=== PATIENT | female | born 1975 | race Caucasian/White ===

== ENCOUNTER 2022-10-20 18:09 | Emergency (ER) | payer BC, SELFPAY ==
--- NOTE | 2022-10-20 18:10 | ED.DENTAL ---
HPI - Dental/Oral General Chief complaint: Dental/Oral Stated complaint: Tooth pain Time Seen by Provider: 10/20/22 18:09 Source: patient Mode of arrival: ambulatory Limitations: no limitations History of Present Illness HPI Narrative: Mayra is a 47-year-old female patient presenting to the clinic today with complaints of right lower dental pain X2 days. She reports She was seen by her dentist 2 days ago and they put a temporary filling in her right lower posterior molar but stated she needed to come back for a root canal. She is concerned that it may be infected now as this morning she developed severe pain. She rates her pain at 10/10 currently. Reports that the pain is radiating into her ear and into her sinuses. Related Data Home Medications Medication Instructions Recorded Confirmed empagliflozin 10 mg tablet 10 mg PO DAILY 10/20/22 10/20/22 (Jardiance) famotidine 20 mg tablet (Pepcid) 20 mg PO DAILY 10/20/22 10/20/22 metformin 500 mg tablet 500 mg PO BID 10/20/22 10/20/22 pregabalin 25 mg capsule (Lyrica) 25 mg PO TID 10/20/22 10/20/22 semaglutide 0.25 mg or 0.5 mg (2 0.25 mg subcut WEEKLY 10/20/22 10/20/22 mg/3 mL) subcutaneous pen injector (Ozempic) tramadol 50 mg tablet 50 mg PO Q6H PRN Pain (Scale Score 10/20/22 10/20/22 7-10) Allergies Allergy/AdvReac Type Severity Reaction Status Date / Time No Known Allergies Allergy Verified 10/20/22 18:24 Review of Systems Review of Systems: Pertinent positives per HPI. Patient denies any fever, chills, rash, headache, visual changes, dizziness, cough, runny nose, sore throat, shortness of breath, chest pain, palpitations, nausea, vomiting, diarrhea, constipation, abdominal pain, or any urinary issues. PMFSH Comments At the time of my signature, I reviewed and agree with the nursing past medical, surgical, social, and family history. There is no relevant family history pertinent to the patient complaint. Exam Narrative: General: Well-developed, well nourished, in no apparent distress Head: Normocephalic, atraumatic Eyes: Pupils equally round and reactive to light bilaterally, EOM intact, sclera and conjunctive clear, no discharge, lids normal Ears: TMs intact and clear, ear canals clear, no drainage, grossly hearing normal. Nose: Nares patent, no discharge, no inflammation, no sinus tenderness. Mouth: Oropharynx without lesions or masses, poor dentition, MMM. Dental pain to number 31 with decay Neck: Supple, trachea midline, no enlargement of anterior or posterior cervical nodes, no thyroid masses or goiter palpable. Cardio: Regular rate and rhythm, s1 and s2 normal, no murmur appreciated. Resp: Clear to auscultation bilaterally anteriorly and posteriorly, no rhonchi, rales, wheezing or rubs Course Course Emergency Course: Portions of this record may have been created with voice recognition software. Level of Care: Express Care Visit Vital Signs Vital signs: Vital signs reviewed Procedures Other Procedure Procedure 1: Other Procedure: Right inferior alveolar block performed in the clinic today. 3 mL 1% Lidocaine with epi injected. Patient tolerated procedure well. Patient's initial pain was 10 attend and this brought her pain down to a 2/10. MDM - Dental/Oral MDM Narrative Medical decision making narrative: At the time of visit patient is resting comfortably on exam table. Offered dental block in the clinic today and patient would like to have this done. Risk and benefits explained and patient voiced understanding. A 23 gauge needle was then used to instill 3 mL of lidocaine with epi to create a right inferior alveolar block. Patient discharge rating her pain a 2/10. Supportive measures were discussed with the patient she voiced understanding discharge instructions agrees to treatment plan. Prescription for amoxicillin was also sent to the pharmacy. Differential Diagnosis Differential diagnosis: Likely gi
[2022-10-20 18:16] VITALS: BP 159/96; PULSE 88; RESP 14; TEMP 37.1; O2SAT 99
[2022-10-20 18:32] VITALS: BP 159/96; PULSE 88; RESP 14; TEMP 37.1; O2SAT 99
== END 2022-10-20 18:43 | disposition home or self-care (01) ==
PROVIDERS: Emergency Provider Nurse Practitioner Family; PCP Nurse Practitioner Family
DX: K08.89 Other specified disorders of teeth and supporting structures (principal); G25.81 Restless legs syndrome; K21.9 Gastro-esophageal reflux disease without esophagitis; E11.9 Type 2 diabetes mellitus without complications; Z79.84 Long term (current) use of oral hypoglycemic drugs; Z90.5 Acquired absence of kidney
CPT/HCPCS: 64999; 99213; G0463